=== PATIENT | female | born 1995 ===

== ENCOUNTER 2020-12-06 13:03 | Outpatient (CLI) | payer OTHER ==
[~2020-12-06] VITALS: Ht 170.2 cm; Wt 111.4 kg
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
[2020-12-06 13:00] VITALS: BP 138/84; PULSE 108; TEMP 97.6
[2020-12-06] MEDS ORDERED: PRENATAL (13:45)
[2020-12-06 14:00] VITALS: BP 121/69; PULSE 92
[2020-12-06 14:45] VITALS: BP 104/68; PULSE 96
--- NOTE | 2020-12-06 14:45 | NUR ---
Patient denies OB concerns and reports normal movement. Category 1 FHR strip obtained. Patient taken off EFM per order and discharge instructions given. Reviewed labor precautions, kick counts, and warning signs. Will follow up as scheduled.
== END 2020-12-06 14:45 | disposition home or self-care (01) ==
LOC: LDRO 13:03 → LDR 13:38 → LDRO 14:45
DX: O9A.213 Injury, poisoning and certain other consequences of external causes complicating pregnancy, third trimester (principal); Z3A.37 37 weeks gestation of pregnancy; Z90.89 Acquired absence of other organs
CPT/HCPCS: OP

== ENCOUNTER → 2020-12-18 | Outpatient (CLI) | payer OTHER ==
[~2020-12-18] MED LIST: IBU800 M1 PO; PERCOCET 325 MG1 TA2 PO; PRENATAL
== END ==
LOC: ZCOL.LAB 08:00
DX: Z20.822 Contact with and (suspected) exposure to COVID-19 (principal)

== ENCOUNTER 2020-12-23 14:59 | Inpatient (IN) | payer OTHER ==
[~2020-12-23] VITALS: Ht 170.2 cm; Wt 113.6 kg
[~2020-12-23 14:59] MED LIST changes: -IBU800 M1 PO; -PERCOCET 325 MG1 TA2 PO
--- NOTE | 2020-12-23 19:10 | NUR ---
Pt arrived on unit ambulatory for scheduled induction of labor. Pt denies any contractions, leaking of fluid or vaginal bleeding and reports normal movement. EFM and toco monitors started. Vital signs WNL. Plan of care for induction reviewed with both pt and at the bedside.
[2020-12-23 19:45] VITALS: BP 142/87; PULSE 102; TEMP 97.8
[2020-12-23 20:45] VITALS: BP 138/82; PULSE 95
[2020-12-23 21:15] VITALS: BP 139/80; PULSE 85
[2020-12-23 21:21] LABS: BASO % 0.3 % (0.0-2.0); EOS % 0.2 % (0-4.0); GRAN # 7.9 (1.4-6.5); GRAN % 75.6 % (42.2-75.2); HEMATOCRIT 38.7 % (37.0-47.0); HEMOGLOBIN 13.3 g/dl (12.5-16.0); LYMPH # 1.7 (1.2-3.4); MEAN CELL VOLUME 88 fl (80.0-100.0); MEAN CORPUSCULAR HEMOGLOBIN 30 pg (27.0-31.0); MEAN CORPUSCULAR HGB CONC 34 g/dl (33.0-37.0); MEAN PLATELET VOLUME 11.3 fl (7.4-10.4); MONO # 0.8 (0.1-0.6); MONO % 7.3 % (1.7-9.3); PLATELET COUNT 206 K/mm3 (130-400); RED BLOOD COUNT 4.42 M/mm3 (4.10-5.30); REDCELL DISTRIBUTION WIDTH-CV 13.9 % (11.5-14.5)
[2020-12-23 21:45] VITALS: BP 123/72; PULSE 82
[2020-12-24] VITALS (57 sets, daily range): BP systolic 95–156; BP diastolic 51–102; PULSE 70–127; TEMP 98–98.7
--- NOTE | 2020-12-24 06:30 | NUR ---
Bedside shift report from Baylee REEVES to assume care of patient at this time. Patient sitting in rocking chair, up to bathroom to void. Reports feeling contractions in her back and some in her abdomen now. Denies need for pain intervention. supportive at bedside.
--- NOTE | 2020-12-24 09:00 | NUR ---
to bedside. Plan of care discussed, questions answered. SVE /-2 per provider. AROM at 0904, moderate amount of meconium stained fluid noted. at bedside. Call light within reach.
--- NOTE | 2020-12-24 10:05 | NUR ---
Patient sitting up for epidural placement. Stef GIMENEZ at bedside. 1007: Lidocaine. 1008: Single Shot, no adverse reactions noted. Epidural Catheter placed. 1013: Patient repositioned to left lateral with peanut ball in place. This RN remains at bedside.
--- NOTE | 2020-12-24 10:45 | NUR ---
Patient comfortable with epidural placement. Espinosa catheter placed. SVE 5/100/0. Patient repositioned to right tilt with peanut ball in place. Encouraged to rest. Denies needs.
--- NOTE | 2020-12-24 11:30 | NUR ---
Patient repositioned to megan position. Denies pain or needs. Call light within reach.
--- NOTE | 2020-12-24 12:00 | NUR ---
Patient repositioned to left lateral with peanut ball in place. TOCO adjusted, difficulty tracing ctx. Will continue to monitor. Denies pain or needs.
--- NOTE | 2020-12-24 12:45 | NUR ---
RN to bedside. SVE 8100/0. Patient repositioned to right tilt with peanut ball in place. Denies needs at this time. Instructed to notify RN with rectal pressure or pain. at bedside. Call light within reach.
--- NOTE | 2020-12-24 13:30 | NUR ---
to bedside. SVE /0 per provider. Patient repositioned to left lateral with right leg in stirrup. Instructed to notify RN with rectal pressure or urge to push. Call light within reach.
--- NOTE | 2020-12-24 14:00 | NUR ---
Patient repositioned to right lateral with left leg in stirrup. at bedside. Call light within reach.
--- NOTE | 2020-12-24 14:20 | NUR ---
Espinosa catheter dc'd. Initial push. This RN remains at bedside during pushing.
--- NOTE | 2020-12-24 15:30 | NUR ---
notified of pushing progress. This RN remains at bedside. Lithotomy, closed-knee, side-lying, and tug-of-war pushing methods alternated.
--- NOTE | 2020-12-24 16:35 | NUR ---
Patient vomits 700ml clear emesis. Zofran given, see eMAR. notified of pushing progress, n/v, and FHR. Patient wants to rest at this time. Pushing stopped, okay per . Will continue to monitor.
--- NOTE | 2020-12-24 17:10 | NUR ---
Pushing resumed per patient request. No pushing progress noted. Patient desires to rest until comes to evaluate.
--- NOTE | 2020-12-24 17:50 | NUR ---
at bedside. Plan of care discussed with patient. Questions answered. Plan to proceed with section at this time. packaging manager notified. Stef HIV/AIDS CARE NURSE notified.
--- NOTE | 2020-12-24 18:00 | NUR ---
EFMS off. Patient to OR via bed.
--- NOTE | 2020-12-25 18:35 | NUR ---
Report recieved. Ambulating in halls at this time. Updated dated whiteboard. POC reviewed.
[2020-12-25 21:00] VITALS: BP 117/70; PULSE 82; TEMP 97.6
[2020-12-26 07:45] VITALS: BP 123/69; PULSE 90; TEMP 97.5
[2020-12-26] MEDS ORDERED: IBU800 M1 PO (09:07)
[2020-12-26] MEDS ORDERED: PERCOCET 325 MG1 TA2 PO (09:07)
[2020-12-26 16:30] VITALS: BP 117/67; PULSE 98; TEMP 97.8
--- NOTE | 2020-12-26 18:30 | NUR ---
Ambulating in room from the soares. Updated whiteboard and POC reviewed. Percocet administered per request. to breast. Sitting up in chair.
[2020-12-26 20:30] VITALS: BP 142/73; PULSE 101; TEMP 97.9
[2020-12-27 07:15] VITALS: BP 118/76; PULSE 86; TEMP 97.8
--- NOTE | 2020-12-27 09:08 | NUR ---
Initial visit; Patient thanked [employer] for offering congratulations and God's blessings for the of their daughter. [employer] thanked them for choosing [facility].
[2021-02-19] MEDS ORDERED: PERCOCET 325 MG1 TA2 PO ×2 (09:27)
== END 2020-12-27 11:50 | disposition home or self-care (01) | DRG 787 ==
LOC: OB 14:59 → LDR 19:00 → OB 19:00
PROVIDERS: ADMIT Student in an Organized Health Care Education/Training Program
PROC: 10D00Z1 Extraction of Products of Conception, Low, Open Approach (ICD-10-PCS; principal; 2020-12-23)
PROC: 3E0P7VZ Introduction of Hormone into Female Reproductive, Via Natural or Artificial Opening (ICD-10-PCS; 2020-12-23)
PROC: 3E033VJ Introduction of Other Hormone into Peripheral Vein, Percutaneous Approach (ICD-10-PCS; 2020-12-23)
PROC: 10907ZC Drainage of Amniotic Fluid, Therapeutic from Products of Conception, Via Natural or Artificial Opening (ICD-10-PCS; 2020-12-23)
DX: O62.1 Secondary uterine inertia (principal); O72.1 Other immediate postpartum hemorrhage; O43.123 Velamentous insertion of umbilical cord, third trimester; O99.214 Obesity complicating childbirth; E66.9 Obesity, unspecified; O36.63X0 Maternal care for excessive fetal growth, third trimester, not applicable or unspecified; O77.0 Labor and delivery complicated by meconium in amniotic fluid; Z3A.39 39 weeks gestation of pregnancy; Z37.0 Single live birth
CPT/HCPCS: J0690; J1885; J2175; J2370; J2405; J2590; J2795; J3010; J7120

== ENCOUNTER → 2021-01-03 | Outpatient (CLI) | payer OTHER ==
[~2021-01-03] MED LIST changes: +IBU800 M1 PO; +PERCOCET 325 MG1 TA2 PO
--- NOTE | 2021-01-03 13:54 | NUR ---
Pt, Ashish Olivarez, presents for outpatient consult with 10 day old baby girl, Renato Olivarez, for a evaluation and to try to latch without a nipple shield. Renato was born by c/section on 12/24/2021 and weighed 8#11.7oz (3960 gms). She was using a nipple shield at time of discharge from the hospital because engorgement made the nipples flatten. Pt has been working on reducing oversupply of milk by block feeding 2x per breast before alternating to the other side x2 feeding. Despite this, pt continues to have copious amounts of milk. Today Renato weighs 8#13.8oz (4020 gms). We attempt to latch without the sheild but with the milk running from the breast and the flattening of the nipple it is obvious Renato cannot latch. She gulps with the nipple shield. Pt c/o back soreness, reviewed postions for and mindfulness of posture to help minimize aches. Pt instructed on laid back nursing, baby does well and pt states back more comfortable. After Renato has a weight gain of 4.8oz (136 gms). She is content. Advised pt that she can block feed with 3 feedings to same breast before alternating. Also discussed use of cabbage leaves to reduce production. POC: contine BF ad elvin, consider increasing block feeds to x3. F/U: With Dr. Kelley as scheduled at one month appt. Questions invited and answered.
== END ==
LOC: LAC
DX: Z39.1 Encounter for care and examination of lactating mother (principal); Z71.89 Other specified counseling